=== PATIENT | male | born 1950 | race Caucasian/White ===

== ENCOUNTER 2018-09-08 11:20 | Emergency (ER) | payer MEDICARE ==
[2018-09-08 11:32] VITALS: BP 121/73
--- NOTE | 2018-09-08 11:35 | UC ---
General HPI - HPI Summary HPI Summary: Pleasant 67 yo gentleman presents c/o noticed R shoulder red "bullseye" chris, this morning noticed it while in the shower. No recent fever / chills. Does not recall recent bite / sting / etc. No medication changes. Feels good in general. No recent h/a, vis / aud changes, sob / cp / palpitations, gi / gu issues. Has not had a rash like this in the past. - History of Current Complaint Chief Complaint: Gerber Stated Complaint: RT SHOULDER TICK BITE Time Seen by Provider: 09/08/18 11:34 Hx Obtained From: Patient Pain Intensity: 0 - Allergy/Home Medications Allergies/Adverse Reactions: Allergies Allergy/AdvReac Type Severity Reaction Status Date / Time Penicillins Allergy Rash Verified 09/08/18 11:32 PMH/Surg Hx/FS Hx/Imm Hx Previously Healthy: Yes - Surgical History Surgical History: Yes Surgery Procedure, Year, and Place: 1995-[facility]- LEFT KNEE- [facility]- [facility]. TONSILLECTOMY A CHILD. Lt T[facility] HIP - - Social History Alcohol Use: Rare Substance Use Type: None Smoking Status (MU): Never Smoked Tobacco - Immunization History Most Recent Influenza Vaccination: HAS NOT HAD Most Recent Tetanus Shot: UP TO DATE Most Recent Pneumonia Vaccination: HAS NEVER HAD Review of Systems All Other Systems Reviewed And Are Negative: Yes Constitutional: Positive: Negative - see hpi Skin: Positive: Other - see hpi Eyes: Positive: Negative - see hpi ENT: Positive: Negative - see hpi Respiratory: Positive: Negative - see hpi Cardiovascular: Positive: Negative - see hpi Gastrointestinal: Positive: Negative - see hpi Genitourinary: Positive: Negative - see hpi Motor: Positive: Negative - see hpi Neurovascular: Positive: Negative - see hpi Musculoskeletal: Positive: Negative - see hpi Neurological: Positive: Negative - see hpi Psychological: Positive: Negative Is Patient Immunocompromised?: No Physical Exam Triage Information Reviewed: Yes Appearance: Well-Appearing, Well-Nourished Vital Signs: Initial Vital Signs Temp 98.6 F 09/08/18 11:30 Pulse 67 09/08/18 11:30 Resp 18 09/08/18 11:30 BP 121/73 09/08/18 11:30 Pulse Ox 99 09/08/18 11:30 Vital Signs Reviewed: Yes Eye Exam: Normal ENT Exam: Normal - grossly normal Neck exam: Normal Neck: Positive: Supple Respiratory Exam: Normal - RR normal, no dyspnea, no tachypnea Cardiovascular Exam: Normal - HR normal, nondiaphoretic Abdominal Exam: Normal - nad, grossly benign Musculoskeletal Exam: Normal - moves x 4 ext's. gait steady. Neurological Exam: Normal Psychological Exam: Normal - conversing easily and appropriately. nad. Skin Exam: Other - nondiaphoretic. Bull's eye appearance rash R upper shoulder , measuring approx 8cm x 9cm diam. Not hot, mild blanching. No central fluctuance or janice lesion. Moves shoulder ok. Course/Dx - Course Course Of Treatment: Reviewed coa / tx plan. Reviewed meds / allergies. There is high suspicion for tick borne etiology. However, pt advised that other etiologies could be the culprit too. Advised f/u with pcp. Questions as posed answered to the best of my ability. Information re Lyme included on the avs instruction, d/t higher suspicion. - Diagnoses Provider Diagnosis: Rash Discharge - Sign-Out/Discharge Documenting (check all that apply): Patient Departure All imaging exams completed and their final reports reviewed: No Studies - Discharge Plan Condition: Stable Disposition: HOME Prescriptions: DOXYcycline CAP(*) [DOXYcycline 100MG CAP(*)] 100 mg PO BID #56 cap Patient Education Materials: Lyme Disease (ED), Acute Rash (ED) Referrals: Salazar Narvaez MD [Primary Care Provider] - Additional Instructions: Your condition may be caused by several possible factors. Lyme disease is one of them. You are being tested for lyme disease. Please follow up with your primary care physician towards the end of this week or early next for recheck. Hydrate. Sun exposure precautions. Please seek medical attention for worse or new problems. - Billing Disposition and Condition Condition: STABLE Disposition: Home
--- NOTE | 2018-09-10 16:17 | UC ---
- Progress Note Progress Note: lyme neg no change johnniej 09/10/18 Course/Dx - Diagnoses Provider Diagnoses: Rash Discharge - Sign-Out/Discharge Documenting (check all that apply): Post-Discharge Follow Up All imaging exams completed and their final reports reviewed: No Studies - Discharge Plan Condition: Stable Disposition: HOME Prescriptions: DOXYcycline CAP(*) [DOXYcycline 100MG CAP(*)] 100 mg PO BID #56 cap Patient Education Materials: Lyme Disease (ED), Acute Rash (ED) Referrals: Salazar Narvaez MD [Primary Care Provider] - Additional Instructions: Your condition may be caused by several possible factors. Lyme disease is one of them. You are being tested for lyme disease. Please follow up with your primary care physician towards the end of this week or early next for recheck. Hydrate. Sun exposure precautions. Please seek medical attention for worse or new problems. - Billing Disposition and Condition Condition: STABLE Disposition: Home
== END 2018-09-08 11:53 | disposition home or self-care (01) ==
LOC: UCEAST 11:20
DX: R21 Rash and other nonspecific skin eruption (principal); Z88.0 Allergy status to penicillin
CPT/HCPCS: 36415; 86618; 86666; 86753; 99212; G0463